=== PATIENT | male | born 1960 | race Two or more races ===

== ENCOUNTER → 2018-12-25 22:08 | Emergency (ER) | payer BC ==
--- NOTE | 2018-12-25 22:52 | ED ---
Lower Extremity - HPI Summary HPI Summary: Patient who is regular bicycler complains of pain at lateral knob just distal to right knee at top of shinbone starting today. Denies trauma, fall, change in range of motion of the knee. Increased pain with weightbearing and flexion of knee. Denies fever, cough, sore throat, CP, SOB, N/V/V abdominal pain, change in urine, change in BM. - History of Current Complaint Chief Complaint: EDExtremityLower Stated Complaint: RIGHT LOWER LEG PAIN PER PT Hx Obtained From: Patient Mechanism Of Injury: Unknown Onset of Pain: Immediate, Hours Onset/Duration: Hours Severity Initially: Moderate Severity Currently: Moderate Pain Intensity: 6 Pain Scale Used: 0-10 Numeric Timing: Constant Location: Is Discrete @ Character Of Pain: Throbbing Associated Signs And Symptoms: Positive: Negative Aggravating Factor(s): Standing, Ambulation, Movement, Weight Bearing Alleviating Factor(s): Rest Able to Bear Weight: Yes - Allergies/Home Medications Allergies/Adverse Reactions: Allergies Allergy/AdvReac Type Severity Reaction Status Date / Time bee venom protein (honey bee) Allergy Hives Verified 12/25/18 22:12 Home Medications: Home Medications NK [No Home Medications Reported] 12/25/18 [History Confirmed 12/25/18] PMH/Surg Hx/FS Hx/Imm Hx Endocrine/Hematology History: Denies: Hx Sickle Cell Disease Cardiovascular History: Denies: Hx Pacemaker/ICD History: Denies: Hx Dialysis Musculoskeletal History: Denies: Hx Rheumatoid Arthritis, Hx Osteoporosis Sensory History: Denies: Hx Eye Prosthesis Opthamlomology History: Denies: Hx Legally Blind EENT History: Denies: Hx Deafness Neurological History: Denies: Hx Dementia Psychiatric History: Denies: Hx Autism Infectious Disease History: No Infectious Disease History: Denies: Traveled Outside the [place] in Last 30 Days - Social History Alcohol Use: Weekly Substance Use Type: Reports: None Smoking Status (MU): Never Smoked Tobacco Review of Systems Constitutional: Negative Eyes: Negative ENT: Negative Cardiovascular: Negative Respiratory: Negative Gastrointestinal: Negative Genitourinary: Negative Musculoskeletal: Other Skin: Negative Neurological: Negative Psychological: Normal All Other Systems Reviewed And Are Negative: Yes Physical Exam - Summary Physical Exam Summary: No erythema, ecchymosis, deformity or swelling or extra warmth noted to right knee. Full range of motion of right knee. Nontender. Pain with palpation of lateral condyle of tibia. No pain with palpation of anterior, posterior, medial or lateral knee. PMS intact distally. Patient ambulatory. Triage Information Reviewed: Yes Vital Signs On Initial Exam: Initial Vitals Temp Pulse Resp BP Pulse Ox 98.9 F 70 16 120/89 99 12/25/18 22:09 12/25/18 22:09 12/25/18 22:09 12/25/18 22:09 12/25/18 22:09 Vital Signs Reviewed: Yes Appearance: Positive: Well-Appearing Skin: Positive: Warm Head/Face: Positive: Normal Head/Face Inspection Eyes: Positive: Normal Neck: Positive: Supple Respiratory/Lung Sounds: Positive: Clear to Auscultation Cardiovascular: Positive: Normal Abdomen Description: Positive: Nontender Musculoskeletal: Positive: Normal Neurological: Positive: Normal Psychiatric: Positive: Normal AVPU Assessment: Alert - [place] Coma Scale Best Eye Response: 4 - Spontaneous Best Motor Response: 6 - Obeys Commands Best Verbal Response: 5 - Oriented Coma Scale Total: 15 Diagnostics - Vital Signs Vital Signs Temp Pulse Resp BP Pulse Ox 12/25/18 22:09 98.9 F 70 16 120/89 99 - Laboratory Lab Statement: Any lab studies that have been ordered have been reviewed, and results considered in the medical decision making process. 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 Denies trauma, fall, change in range of motion of the knee. Increased pain with weightbearing and flexion of knee. Denies fever, cough, sore throat, CP, SOB, N/V/V abdominal pain, change in urine, change in BM. Physical exam:No erythema, ecchymosis, deformity or swelling or extra warmth noted to right knee. Full range of motion of right knee. Nontender. Pain with palpation of lateral condyle of tibia. No pain with palpation of anterior, posterior, medial or lateral knee. PMS intact distally. Patient ambulatory. Vital signs within normal limits. No trauma. Diagnosis iliotibial band syndrome. Ice rest , ibuprofen. Follow-up with orthopedics if symptoms persist. - Diagnoses Provider Diagnoses: Iliotibial band syndrome Discharge - Sign-Out/Discharge Documenting (check all that apply): Patient Departure Patient Received Moderate/Deep Sedation with Procedure: No - Discharge Plan Condition: Stable Disposition: HOME Patient Education Materials: Iliotibial Band Syndrome (ED) Referrals: Mathew Galeano MD [Primary Care Provider] - Additional Instructions: Rest knee and avoid any activities that make the pain worse. Put ice on the outside of your knee for 15 minutes at a time. Take ibuprofen for inflammation. Symptoms persist follow-up with orthopedics Dr. Oliveira. Return to the ED for any new or worsening symptoms. - Billing Disposition and Condition Condition: STABLE Disposition: Home
[2018-12-25 23:07] VITALS: BP 106/80
== END | disposition home or self-care (01) ==
LOC: ED 22:08
DX: M76.31 Iliotibial band syndrome, right leg (principal); Z91.030 Bee allergy status
CPT/HCPCS: 99282